=== PATIENT | female | born 1935 | race Caucasian/White ===

== ENCOUNTER 2022-04-16 13:46 | Emergency (ER) | payer MEDICARE ==
[2022-04-16] MEDS ORDERED: HYDROcod/ACETAM 5/325 MG TABLET PO STA (14:20)
--- NOTE | 2022-04-16 14:22 | ED Physician Documentation ---
PD HPI BACK PAIN - Stated complaint Stated Complaint: FALL, BACK PX - Chief complaint Chief Complaint: Trauma Ch/Bk - History obtained from History obtained from: Patient, Friend - Additional information Additional information: 86-year-old woman who is very healthy presents accompanied by a friend for evaluation of low back pain starting after a fall. About 2 to 3 hours ago she was about 4 feet up on a ladder and missed the last step coming down after cleaning her gutters. She landed on her butt on grass but has low back pain. No other injuries. Review of Systems Constitutional: denies: Fever, Chills Cardiac: denies: Chest pain / pressure, Palpitations Respiratory: denies: Dyspnea, Cough PD PAST MEDICAL HISTORY - Present Medications Home Medications: Ambulatory Orders Medication Instructions Recorded Confirmed Calcitonin [Fortical] 1 sprays JOHN PAUL DAILY #1 bottle 04/16/22 HYDROcod/ACETAM 5/325 [[place] 5/325] 1 - 2 tab PO Q6H PRN #30 tablet 04/16/22 - Allergies Allergies/Adverse Reactions: Allergies Allergy/AdvReac Type Severity Reaction Status Date / Time No Known Drug Allergies Allergy Verified 04/16/22 13:59 PD ED PE NORMAL - Vitals Vital signs reviewed: Yes - General General: Alert and oriented X 3, Other (Slightly hard of hearing but appears quite youthful and fit for her age.) - HEENT HEENT: PERRL, EOMI - Abdomen Abdomen: Normal bowel sounds, Soft, Non tender - Back Back: Other (TTP around L1) - Derm Derm: Normal color, Warm and dry - Extremities Extremities: Other (The patient has equal and normal Achilles and patellar reflexes bilaterally. Normal sensation in all areas of the legs. Patient denies saddle anesthesia. Normal strength in flexion-extension at the ankles, knees, and flexion of the hips.) - Neuro Neuro: Alert and oriented X 3, Normal speech Results - Vitals Vitals: Vital Signs - 24 hr 04/16/22 04/16/22 13:56 16:43 Temperature 36.9 C 36.8 C Heart Rate 58 L 60 Respiratory 16 16 Rate Blood Pressure 141/53 H 130/60 O2 Saturation 94 96 Oxygen O2 Source Room air - Rads (name of study) CT L spine Radiology: EMP read contemporaneously (acute l1 comp frx) PD MEDICAL DECISION MAKING - ED course ED course: 86-year-old woman presents after a fall and has focal tenderness at L1 corresponding to an acute appearing compression fracture. Pain was improved but still not great after medication here. Supportive daughter plans to take her home as she will need some extra help in the short-term. Departure - Departure Disposition: 01 Home, Self Care Clinical Impression: Compression fracture of L1 lumbar vertebra Qualifiers: Encounter type: initial encounter Qualified Code(s): S32.010A - Wedge compression fracture of first lumbar vertebra, initial encounter for closed fracture Condition: Good Record reviewed to determine appropriate education?: Yes Instructions: ED Fx Comp Vertebral Prescriptions: Calcitonin [Fortical] 1 sprays JOHN PAUL DAILY #1 bottle HYDROcod/ACETAM 5/325 [[place] 5/325] 1 - 2 tab PO Q6H PRN #30 tablet PRN Reason: Pain Comments: We found today that you have an acute appearing L1 compression fracture. This should heal fine but I suspect you will hurt for quite some time. I sent prescriptions electronically to [facility] in [place]. Call your doctor to arrange a follow-up appointment, make the next available appointment. In the interim, return anytime if worse or if new symptoms develop. I am prescribing a short course of narcotic pain medication for you. These are potentially dangerous and addictive medications that should be used carefully. These medications may constipate you. Take an [id number]-yam-pvmibiu stool softener (docusate) twice daily with plenty of water while taking these medications. If you go 24 hours without a bowel movement, take [id number] miralax, per package instructions. Do not drink or drive while taking these medications. If you received narcotic or sedating medications while in the emergency department, do not drive for 24 hours. Store this medication in a safe, secure place and out of reach of children. It is a violation of federal law to give or sell this medication to another person or to use in a manner other than prescribed. The ED will not refill narcotic prescriptions, including prescriptions lost or stolen. To dispose of unwanted medications: 1. [facility] [address] in [place] has a medication drop box. They accept prescription medications (in pill form) Saturday through Saturday 9:00 a.m. to 5:00 p.m. 2. The [facility] accepts prescription medications (in pill form only) for disposal year round. Call for more information. 3. Contact the [facility] for the next [facility] sponsored prescription drug collection event. , [phone], or [phone]; Note that many narcotic pain relievers also contain Tylenol/acetaminophen. Please ensure that your total dose of acetaminophen from all sources does not exceed 3 g (3000 mg) per day. Discharge Date/Time: 04/16/22 16:50
--- NOTE | 2022-04-16 16:27 | CT Report ---
PROCEDURE: LUMBAR SPINE WO INDICATIONS: back injury TECHNIQUE: Noncontrast 3 mm thick sections acquired from the T12 level to the sacrum. Sagittal and coronal refo rmats were constructed. For radiation dose reduction, the following was used: automated exposure co ntrol, adjustment of mA and/or kV according to patient size. COMPARISON: None. FINDINGS: Image quality: Excellent. Bones: There is an approximate 85% compression deformity at T12. Minimal retropulsion is present wit h mild to moderate spinal stenosis. There is a visualized fracture lucency extending anterior to post erior along the superior endplate of L1 with approximately 25% compression deformity. Superior endpla te deformities are noted L2 and L3 resulting in approximately 40% and 35% compression fracture. Multilevel degenerative changes are also present including disc bulges, spinal stenosis and foraminal narrowing. Soft tissues: No retroperitoneal masses or hematomas. Visualized aorta is normal in caliber. IMPRESSION: Acute/subacute appearing fracture within the superior aspect of the L1 vertebral body. Approximately 85% compression deformity at T8 12 as well as endplate deformities at L2 and L3 of inde terminate age. Reviewed by: Charity Blas MD on 04/16/2022 4:26 PM PDT Approved by: Charity Blas MD on 04/16/2022 4:26 PM PDT Station ID: [id number]
[2022-04-16 16:44] VITALS: BP 130/60
== END 2022-04-16 16:50 | disposition home or self-care (01) ==
LOC: ED 13:46
DX: S32.010A Wedge compression fracture of first lumbar vertebra, initial encounter for closed fracture (principal); W11.XXXA Fall on and from ladder, initial encounter; Y93.E9 Activity, other interior property and clothing maintenance; Y92.008 Other place in unspecified non-institutional (private) residence as the place of occurrence of the external cause
CPT/HCPCS: 72131; 99283; A9270

== ENCOUNTER 2022-12-24 17:06 | Outpatient (CLI) | payer MEDICARE | END 2022-12-24 23:59 | disposition critical access hospital (66) | LOC: EMS 17:06 | DX: Z04.1 Encounter for examination and observation following transport accident (principal) | CPT/HCPCS: A0425; A0429 ==

== ENCOUNTER 2022-12-24 17:20 | Emergency (ER) | payer MEDICARE ==
[2022-12-24 17:25] VITALS: BP 129/70
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
== END 2022-12-24 19:00 | disposition home or self-care (01) ==
LOC: EDUNIT# → ED 17:20
DX: Z04.1 Encounter for examination and observation following transport accident (principal); V43.52XA Car driver injured in collision with other type car in traffic accident, initial encounter; Y92.410 Unspecified street and highway as the place of occurrence of the external cause
CPT/HCPCS: 99283